=== PATIENT | male | born 1945 | race Caucasian/White ===

== ENCOUNTER → 2016-03-13 | Day surgery (SDC) | payer OTHER, BC ==
[2016-03-05 07:56] VITALS: Ht 180.3 cm; Wt 90.0 kg
[~2016-03-13] VITALS: Ht 180.3 cm; Wt 90.0 kg
[~2016-03-13] MED LIST: ACET-24 PO; ACET1TAB84 PO; ASPEC325 PO; ASPI-589 PO; ATOR-22 PO; ATROPINE SULFATE 0.1 MG/ML 5ML SYR IV PRN; CALC500C70 PO; CETI10TA84 PO; EpHEDrine SULFATE INJ 50 MG/ML AMP IV PRN; GLUCTAB7 PO; LEVO-371 PO; LIDOCAINE HCL 2% 2 ML VIAL (20MG/ML) ONE; MIDAZOLAM HCL 1 MG/ML 2ML VIAL ONE; MISCCAP80 PO; MORP-157 PO; NIAC500T11 PO; OMEG10007 PO; ONDA4TAB65 PO; ONDANSETRON INJ 2 MG/ML 2 ML VIAL ONE; PRLSR20 PO; PROPOFOL IV EMULSION 10 MG/ML 20 ML VIAL IV ONE; PSYL48.59 PO; RANI300T2 PO; SODIUM CHLORIDE 0.9% 500ML 500 ML IV ONE; ULT50X PO; VNTHFA/IN INH
[2016-03-13 11:20] VITALS: TEMP 36.7
--- NOTE | 2016-03-13 11:46 | Endo History and Physical ---
History & Physical Date of Service: Mar 13, 2016. Chief Complaint: Screening Referring Physician: Valdo History of Present Illness 70 yo CM who presents for screening colonoscopy. Past Medical History Arthritis, Asthma, Reflux Past Surgical History Hx Cardiac Surgery: No Hx Internal Defibrillator: No Hx Pacemaker: No Hx Abdominal Surgery: Yes (LAP KYLER, ERCP AND STENT PLACED IN PANCREAS) Hx of Implantable Prosthesis: No Hx Post-Op Nausea and Vomiting: No Hx Cancer Surgery: No Hx Thoracic Surgery: No Hx Orthopedic: No Hx Urinary Tract Surgery: No Family History None Social History Smoking Status: Former Smoker Hx Substance Use: No Hx Alcohol Use: No Allergies Coded Allergies: No Known Allergies (Unverified , 03/05/16) Current Medications Reported Home Medications Medications Dose Route/Sig Max Daily Dose Days Date Category Ventolin Hfa (Albuterol) 200 Puffs/10470 Mcg Aers 2-4 Puffs INH Q6H PRN 03/05/16 Reported Niacin 500 Mg Tab 500 Mg PO QAM 03/05/16 Reported [place]-3 (Fish Oil) 1 Ea Cap 1 Cap PO QAM 03/05/16 Reported Glucosamine Chondroitin (Asyuqhvzmzg-Gowloxfyjde-Oam C-) 1 Tab Tab 1 Tab PO BID 03/05/16 Reported Os-Marky 500 Plus D (Calcium/Vitamin D) Tab 1 Tab PO QAM 03/05/16 Reported Zyrtec (Cetirizine HCl) 10 Mg Tab 10 Mg PO HS 03/05/16 Reported Zantac (Ranitidine HCl) 300 Mg Tab 300 Mg PO HS 03/05/16 Reported Prilosec (Omeprazole) 20 Mg Capcr 20 Mg PO QAM 03/05/16 Reported Lipitor (Atorvastatin Calcium) 20 Mg Tab 20 Mg PO QPM 03/05/16 Reported Metamucil (Psyllium) 48.57 % Pow 1 Dose PO QAM 03/05/16 Reported Probiotic (Probiotic Product) 1 Cap Cap 1 Cap PO QAM 03/05/16 Reported Aspirin Adult Low Dose (Aspirin) 81 Mg Tab 81 Mg PO HS 06/17/14 Reported Vital Signs Weight (Kilograms): 90 Height (Feet): 5 Height (Inches): 11 Date Time Temp Pulse Resp B/P Pulse Ox O2 Delivery O2 Flow Rate FiO2 03/13/16 11:20 36.7 78 18 129/62 98 Room Air Physical Exam General Appearance: WD/WN, no apparent distress Respiratory/Chest: Auscultation: breath sounds normal Cardiovascular: Heart Auscultation: RRR Abdomen: Bowel Sounds: normal Inspection & Palpation: soft, non-distended, no tenderness, guarding & rebound Assessment and Plan Assessment: 70 yo CM who presents for screening colonoscopy. Plan: Proceed with colonoscopy.
--- NOTE | 2016-03-13 12:15 | Discharge Instructions ---
Endoscopy Patient Instructions Date / Procedure(s) Performed Mar 13, 2016. Colonoscopy Allergy Information Coded Allergies: No Known Allergies (Unverified , 03/05/16) Discharge Date / Findings Mar 13, 2016. Colon polyps Diverticulosis Internal hemorrhoids Provider Instructions Activity Restrictions - No exercising or heavy lifting for 24 hours. - Do not drink alcohol the day of the procedure. - Do not drive a car or operate machinery until the day after the procedure. - Do not make any important decisions or sign important papers in 24 hours after the procedure. Following Day: - Return to full activity which may include returning to work/school. Diet Start your diet with liquids and light foods (jello, soup, juice, toast). Then eat your usual diet if not nauseated. Treatment For Common After Affects For mild abdominal pain, bloating, or excessive gas: - Rest - Eat lightly - Lie on right side Follow-Up Information Follow-up with Valdo as scheduled Anesthesia Information What You Should Know You have had a procedure that required some medicine to reduce anxiety and discomfort. This treatment is called moderate sedation. After receiving the treatment, you may be sleepy, but you will be able to breathe on your own. The effects of the treatment may last for several hours. Follow these instructions along with Activity/Diet recommendations noted above: * Do NOT do anything where dizziness or clumsiness would be dangerous. * Rest quietly at home today, then you can be up and about tomorrow. * Have a responsible person stay with you the rest of today. * You may have had an I.V. today. If so, you may take the dressing off later today. Recommendations Call your doctor if: * Trouble breathing * Continuous vomiting for more than 24 hours * Temperature above 101 degrees * Severe abdominal pain or bloating * Pain not relieved by pain medicine ordered * There is increased drainage or redness from any incision * A large amount of rectal bleeding greater than 2-3 tablespoons. (If you had a polyp/s removed or have hemorrhoids, a small amount of blood - from the rectum is to be expected.) * You have any unanswered questions or concerns. IN THE EVENT OF A SERIOUS EMERGENCY, GO TO THE NEAREST EMERGENCY ROOM Your discharge instructions were prepared by provider Kevan Younger. Patient Instructions Signature Page Bob Elizondo Patient (or Guardian) Signature/Date: I have read and understand the instructions given to me by my caregivers. Caregiver/RN/Doctor Signature/Date: The above-named patient and/or guardian has received patient instructions on this date. + Original Patient Signature Page (only) stays with chart. Please make copy for patient.
[2016-03-13 12:32] VITALS: PULSE 81
--- NOTE | 2016-03-13 12:37 | Anesthesiology Progress Note ---
Anesthesia Post Op Note Date & Time Mar 13, 2016 at 12:37 Vital Signs Pain Intensity: 0 Vital Signs Past 12 Hours Date Time Temp Pulse Resp B/P Pulse Ox O2 Delivery O2 Flow Rate FiO2 03/13/16 12:32 81 18 94/53 95 Room Air 03/13/16 12:15 82 18 102/48 93 Room Air 03/13/16 11:20 36.7 78 18 129/62 98 Room Air Notes Mental Status: alert / awake / arousable, participated in evaluation Pt Amnestic to Procedure: Yes Nausea / Vomiting: adequately controlled Pain: adequately controlled Airway Patency, RR, SpO2: stable & adequate BP & HR: stable & adequate Hydration State: stable & adequate Anesthetic Complications: no major complications apparent
[2016-03-13 12:42] VITALS: BP 102/57; O2SAT 98
--- NOTE | 2016-03-13 12:43 | GI REPORT ---
Procedure Date: 03/13/2016 11:16 AM Procedure: Colonoscopy Indications: High risk colon cancer surveillance: Personal history of colonic polyps Medicines: Monitored Anesthesia Care Complications: No immediate complications. Estimated Blood Loss: Estimated blood loss: none. Procedure: Pre-Anesthesia Assessment: - Prior to the procedure, a History and Physical was performed, and patient medications and allergies were reviewed. The patient's tolerance of previous anesthesia was also reviewed. The risks and benefits of the procedure and the sedation options and risks were discussed with the patient. All questions were answered, and informed consent was obtained. Prior Anticoagulants: The patient has taken aspirin, last dose was 1 day prior to procedure. ASA Grade Assessment: II - A patient with mild systemic disease. After reviewing the risks and benefits, the patient was deemed in satisfactory condition to undergo the procedure. After I obtained informed consent, the scope was passed under direct vision. Throughout the procedure, the patient's blood pressure, pulse, and oxygen saturations were monitored continuously. The Scope was introduced through the anus and advanced to the terminal ileum. The colonoscopy was performed without difficulty. The patient tolerated the procedure well. The quality of the bowel preparation was good. The terminal ileum, ileocecal valve, appendiceal orifice, and rectum were photographed. Findings: Three sessile polyps were found in the transverse colon and in the ascending colon. The polyps were 5 to 7 mm in size. These polyps were removed with a hot snare. Resection and retrieval were complete. Multiple small-mouthed diverticula were found in the sigmoid colon. Non-bleeding internal hemorrhoids were found during retroflexion. The hemorrhoids were small. Impression: - Three 5 to 7 mm polyps in the transverse colon and in the ascending colon, removed with a hot snare. Resected and retrieved. - Diverticulosis in the sigmoid colon. - Non-bleeding internal hemorrhoids. Recommendation: - Resume previous diet. - Continue present medications. - Repeat colonoscopy for surveillance based on pathology results. - Return to primary care physician as previously scheduled. Kevan Younger DO 03/13/2016 12:42:10 PM This report has been signed electronically. Note Initiated On: 03/13/2016 11:16 AM
== END | disposition home or self-care (01) ==
LOC: C.GI 10:16
PROVIDERS: ATTEND Internal Medicine
DX: Z12.11 Encounter for screening for malignant neoplasm of colon (principal); Z86.010 Personal history of colon polyps; D12.2 Benign neoplasm of ascending colon; D12.3 Benign neoplasm of transverse colon; K57.30 Diverticulosis of large intestine without perforation or abscess without bleeding; K64.8 Other hemorrhoids; J45.909 Unspecified asthma, uncomplicated; E78.5 Hyperlipidemia, unspecified

== ENCOUNTER → 2016-03-19 | Outpatient (CLI) | payer OTHER, BC ==
[~2016-03-19] MED LIST changes: -ATROPINE SULFATE 0.1 MG/ML 5ML SYR IV PRN; -EpHEDrine SULFATE INJ 50 MG/ML AMP IV PRN; -LIDOCAINE HCL 2% 2 ML VIAL (20MG/ML) ONE; -MIDAZOLAM HCL 1 MG/ML 2ML VIAL ONE; -ONDANSETRON INJ 2 MG/ML 2 ML VIAL ONE; -PROPOFOL IV EMULSION 10 MG/ML 20 ML VIAL IV ONE; -SODIUM CHLORIDE 0.9% 500ML 500 ML IV ONE
[2016-03-19 18:25] LABS: URINE APPEARANCE CLEAR (CLEAR); URINE BILIRUBIN NEG (NEG); URINE COLOR YELLOW; URINE NITRITE NEG (NEG); URINE PH 5.5 (4.5-7.5); URINE SPECIFIC GRAVITY 1.003 (1.000-1.030); UROBILINOGEN NEG (NEG)
[2016-03-19 18:26] LABS: MANUAL MICROSCOPIC REQUIRED? NO; REVIEW REQ? NO
== END | disposition home or self-care (01) ==
LOC: C.LABSPEC 10:48
PROVIDERS: ATTEND Family Medicine
DX: R39.9 Unspecified symptoms and signs involving the genitourinary system (principal)

== ENCOUNTER → 2016-07-26 | Outpatient (CLI) | payer OTHER, BC ==
[~2016-07-26] MED LIST changes: -LEVO-371 PO; +LEVO5TAB2 PO
[2016-07-26 13:31] LABS: HEMATOCRIT 42.8 % (42-52); MEAN CORPUSCULAR HEMOGLOBIN 28.7 pg (25-34); MEAN CORPUSCULAR HGB CONC 32.9 g/dl (32-36); MEAN PLATELET VOLUME 9.6 fL (7.4-10.4); PLATELET COUNT 222 K/uL (130-400); RED BLOOD COUNT 4.92 M/uL (4.7-6.1)
[2016-07-26 14:25] LABS: ALT/SGPT 29 U/L (12-78); BLOOD UREA NITROGEN 15 mg/dl (7-18); BUN/CREATININE RATIO 12.8 (10-20); CARBON DIOXIDE 29 mmol/L (21-32); CHLORIDE 106 mmol/L (98-107); CHOLESTEROL 177 mg/dl (0-200); GLUCOSE 83 mg/dl (70-99); SODIUM 142 mmol/L (136-145); TRIGLYCERIDES 186 mg/dl (0-150); VERY LOW DENSITY LIPOPROT CALC 37 mg/dl
[2016-07-26 14:29] LABS: ALKALINE PHOSPHATASE 47 U/L (45-117); AST/SGOT 15 U/L (15-37); CHOLESTEROL/HDL RATIO 3.6; HDL CHOLESTEROL 49 mg/dl; LDL CHOLESTEROL CALCULATED 91 mg/dl; PROSTATE SPECIFIC ANTIGEN 0.872 ng/ml (0.000-4.000)
[2016-07-26 14:32] LABS: CALCIUM 8.6 mg/dl (8.5-10.1)
== END | disposition home or self-care (01) ==
LOC: C.LABMFLN 08:23
PROVIDERS: ATTEND Family Medicine
DX: J45.909 Unspecified asthma, uncomplicated (principal); K21.9 Gastro-esophageal reflux disease without esophagitis; E78.5 Hyperlipidemia, unspecified; Z11.59 Encounter for screening for other viral diseases; Z12.5 Encounter for screening for malignant neoplasm of prostate

== ENCOUNTER 2016-10-23 08:17 | Inpatient (IN) | payer OTHER, BC ==
[2016-10-19 08:25] VITALS: BMI 29.0
--- NOTE | 2016-10-19 08:55 | PAT Medication Instructions ---
Service Date Oct 19, 2016. Current Home Medication List Acetaminophen (Tylenol Arthritis Ext Rel), 1,300 MG PO PRN Albuterol Hfa (Ventolin Hfa), 2-4 PUFFS INH Q6H PRN for Shortness of Breath Aspirin (Aspirin Adult Low Dose), 81 MG PO HS Atorvastatin (Lipitor), 20 MG PO QPM Calcium/Vitamin D (Os-Marky 500 Plus D), 1 TAB PO QAM Fish Oil ([place]-3), 1 CAP PO QAM Zbxkstgxnty-Ailgunuxtpr-Ivk C- (Glucosamine Chondroitin), 1 TAB PO BID Levocetirizine Dihydrochloride (Xyzal), 1 TAB PO QPM Niacin (Niacin), 500 MG PO QAM Omeprazole (Prilosec), 20 MG PO QAM Psyllium (Metamucil), 1 DOSE PO BID Ranitidine (Zantac), 150 MG PO HS Medication Instructions For Your Scheduled Surgery - Hold the following medications as of 10/19/16: Fish Oil ([place]-3), 1 CAP PO QAM Dmwtmgglgqw-Ltmhrbojpnf-Vtj C- (Glucosamine Chondroitin), 1 TAB PO BID - Hold the following medications the morning of surgery: Niacin (Niacin), 500 MG PO QAM Calcium/Vitamin D (Os-Marky 500 Plus D), 1 TAB PO QAM Psyllium (Metamucil), 1 DOSE PO BID - Take the following medications the morning of surgery with a sip of water OTHERWISE NOTHING TO EAT OR DRINK AFTER MIDNIGHT: Albuterol Hfa (Ventolin Hfa), 2-4 PUFFS INH Q6H PRN for Shortness of Breath ( USE IF NEEDED; BRING TO HOSPITAL) Acetaminophen (Tylenol Arthritis Ext Rel), 1,300 MG PO PRN (if needed; up to 4 hours prior to surgery) Omeprazole (Prilosec), 20 MG PO QAM - Take the following medications as scheduled the night before surgery: Albuterol Hfa (Ventolin Hfa), 2-4 PUFFS INH Q6H PRN for Shortness of Breath Acetaminophen (Tylenol Arthritis Ext Rel), 1,300 MG PO PRN Aspirin (Aspirin Adult Low Dose), 81 MG PO HS Atorvastatin (Lipitor), 20 MG PO QPM Levocetirizine Dihydrochloride (Xyzal), 1 TAB PO QPM Ranitidine (Zantac), 150 MG PO HS Psyllium (Metamucil), 1 DOSE PO BID If you have any questions please call us at [phone] or [phone] or [phone]
--- NOTE | 2016-10-19 09:46 | DIAGNOSTIC IMAGING REPORT ---
CHEST PREADMISSION(PA/LAT) CLINICAL HISTORY: 70 years-old Male presenting with preadmission chest x-ray. TECHNIQUE: PA and lateral views of the chest were obtained. COMPARISON: 03/28/2015. FINDINGS: Atherosclerosis of aortic arch. Cardiac silhouette normal. Lungs and pleural spaces clear. Osseous structures normal. Cholecystectomy clips noted. IMPRESSION: 1. No acute cardiopulmonary disease. Electronically signed by: Jerod Carlton M.D. 10/19/2016 9:45 AM Dictated Date/Time: 10/19/2016 9:44 AM
[2016-10-19 10:06] LABS: BASO % 0.3 %; BASO ABS # 0.02 K/uL (0-0.2); COMPLETE YES; HEMATOCRIT 41.1 % (42-52); LYMPH % 39.2 %; MEAN CELL VOLUME 86.2 fL (80-100); MEAN CORPUSCULAR HEMOGLOBIN 28.7 pg (25-34); MEAN CORPUSCULAR HGB CONC 33.3 g/dl (32-36); MEAN PLATELET VOLUME 9.3 fL (7.4-10.4); MONO % 9.9 %; NEUT % 44.6 %; PLATELET COUNT 249 K/uL (130-400); RED BLOOD COUNT 4.77 M/uL (4.7-6.1); WHITE BLOOD COUNT 5.86 K/uL (4.8-10.8)
[2016-10-19 10:14] LABS: PROTHROMBIN TIME (PATIENT) 10.5 SECONDS (9.0-12.0)
[2016-10-19 10:24] LABS: BUN/CREATININE RATIO 13.8 (10-20); CALCIUM 8.3 mg/dl (8.5-10.1); CREATININE 1.1 mg/dl (0.60-1.40); POTASSIUM 4.4 mmol/L (3.5-5.1)
--- NOTE | 2016-10-19 19:03 | HISTORY & PHYSICAL EXAMINATION ---
DATE OF ADMISSION: 10/23/2016 CHIEF COMPLAINT: Right knee pain. HISTORY OF PRESENT ILLNESS: A 70-year-old gentleman who presents for surgical treatment of his right knee. He has got a long history of right knee pain and discomfort. He describes it has gotten worse over time. He has been through extensive conservative care. This has become less successful over time. The shots help him for about a week and that is about it. The pain medicines and the antiinflammatories barely take the edge off. Pain has become more disabling. He has got pain all the time. It is increased with weightbearing. It is mostly lateral sided pain. He would like to have his knee replaced. PAST MEDICAL HISTORY: Significant for: 1. Elevated cholesterol. 2. Gastroesophageal reflux disease. 3. Hiatal hernia. PAST SURGICAL HISTORY: Previous surgeries include: 1. Throat surgery. 2. Cholecystectomy. ALLERGIES: None. CURRENT MEDICINES: Include: 1. Atorvastatin 20 mg. 2. Omeprazole 20 mg. 3. Ranitidine 300 mg at bedtime. 4. Metamucil 2 tablespoons twice a day. 5. Aspirin 81 mg a day. 6. Xyzal p.r.n. for allergies. 7. Calcium. 8. Glucosamine. 9. Fish oil. 10. [place] 3. 11. Niacin. 12. Probiotic. SOCIAL HISTORY: He is a 70-year-old male. He is from [place]. He is . FAMILY HISTORY: Negative for cardiac disease or diabetes. No known clotting disorders. REVIEW OF SYSTEMS: Negative for diabetes, neurologic problems, vascular problems, bleeding disorders. Denies any chest pain or shortness of breath. No history of DVT or PE. PHYSICAL EXAMINATION: GENERAL: Physical examination reveals a healthy, pleasant, middle-aged male. He looks to be in good health. HEENT: Benign. NECK: Supple. No lymphadenopathy. LUNGS: Clear to auscultation. HEART: Has a regular rate and rhythm. ABDOMEN: Soft, nontender, nondistended. EXTREMITIES: Grossly neurovascularly intact except as follows: Examination of the right knee reveals the patient to ambulate independently. The patient has slight valgus alignment to his knee which is made worse with weightbearing. He has got a small knee effusion. He is tender both over the medial and lateral joint line. Range of motion is 5-120. No instability. X-RAYS: X-rays of the right knee reviewed. It shows advanced lateral compartment DJD with complete loss of his lateral joint space on 40-degree flexion films. He has got osteophytes off the lateral femoral condyle and lateral tibial plateau. ASSESSMENT: A 70-year-old male with right knee advanced lateral compartment degenerative joint disease unresponsive to conservative treatment. He would like to have his knee replaced. PLAN: We will take him to the operating room and do a right total knee replacement. The risks and benefits of this procedure were explained to the patient including but not limited to DVT, PE, , infection, neurological injury, vascular injury, bleeding problem, pain, limited range of motion, stiffness, failure to relieve the symptoms, incomplete relief of symptoms, need for further surgery in the future, fracture, leg length inequality, nerve palsy, persistent pain, etc. The patient understands and desires to proceed. Informed consent was obtained. The patient will stop his supplements 10 days preop. He is planning to be discharged to home using a home health program of some sort.
[~2016-10-23] VITALS: Ht 180.3 cm; Wt 94.8 kg
[2016-10-23] VITALS (8 sets, daily range): BP systolic 102–127; BP diastolic 61–75; PULSE 49–80; TEMP 36.4–36.9; O2SAT 95–99; Ht 180.3 cm; Wt 94.8 kg
[~2016-10-23 08:17] MED LIST changes: -ACET-24 PO; +ACETAMINOPHEN 500 MG TAB PO SCH; -ASPEC325 PO; +BUPIVACAINE 0.25% 30 ML VIAL ONE; +BUPIVACAINE 0.5 % 5 MG/1 ML PF 10ML VIAL ONE; +BUPIVACAINE LIPOSOME 266 MG, BUPIVACAINE/EPINEPHRINE INJ 50 ML, SODIUM CHLORIDE 0.9% PF... INFIL SCH; +CEFAZOLIN 2000 MG/60 ML D5W 60 ML IV SCH; -CETI10TA84 PO; +FAMOTIDINE 20 MG TAB PO SCH; +GABAPENTIN 300 MG CAP PO SCH; +LACTATED RINGER'S 1000ML 1,000 ML IV SCH; +LACTATED RINGER'S 1000ML 500 ML IV ONE; +LACTATED RINGER'S 1000ML IV SCH; +LEVO-371 PO; -LEVO5TAB2 PO; +METOCLOPRAMIDE HCL 10 MG TAB PO SCH; -MISCCAP80 PO; -MORP-157 PO; -ONDA4TAB65 PO; +SCOPOLAMINE 1.5 MG TDSY TD SCH; +TRANEXAMIC ACID INJ 1,000 MG in SODIUM CHLORIDE 0.9% 100ML 100 ML IV SCH; -ULT50X PO
--- NOTE | 2016-10-23 08:50 | History & Physical Bridge Note ---
H&P Re-Evaluation Bridge Note: I have examined the patient, reviewed the History & Physical and in the interval since the performance of the History & Physical I have noted the following changes of clinical significance: No changes noted
[2016-10-23] MEDS: CHECK SCOPOLAMINE PATCH PLACEMENT SCH (09:01)
[2016-10-23] MEDS ORDERED: MIDAZOLAM HCL 1 MG/ML 2ML VIAL ONE ×3 (09:53→10:59)
[2016-10-23] MEDS ORDERED: ATROPINE SULFATE 0.1 MG/ML 5ML SYR IV PRN (11:00)
[2016-10-23] MEDS ORDERED: HYDROmorphone INJ 2 MG/ML SYR/VIAL IV PRN (11:00)
[2016-10-23] MEDS ORDERED: ONDANSETRON INJ 2 MG/ML 2 ML VIAL IV PRN (11:00)
[2016-10-23] MEDS ORDERED: PHENYLEPHRINE 100MCG/ML 5ML SYR IV PRN (11:00)
[2016-10-23] MEDS ORDERED: EpHEDrine SULFATE INJ 50 MG/ML AMP IV PRN (11:00)
[2016-10-23] MEDS ORDERED: BACITRACIN 50000 UNIT VIAL ONE (11:04)
[2016-10-23] MEDS ORDERED: BUPIVACAINE/EPINEPHRINE 0.25% 1:200,000 30 ML VIAL ONE (11:04)
[2016-10-23] MEDS ORDERED: BUPIVACAINE LIPOSOME 1/3% 266 MG/20 ML VIAL INFIL ONE (11:04)
[2016-10-23] MEDS ORDERED: SODIUM CHLORIDE 0.9% PF 50 ML VIAL ONE (11:04)
[2016-10-23] MEDS ORDERED: ROPIVACAINE 0.5% 5 MG/ML 30 ML VIAL ONE (11:33)
[2016-10-23] MEDS ORDERED: LIDOCAINE HCL 2% 2 ML VIAL (20MG/ML) ONE (12:25)
[2016-10-23] MEDS ORDERED: PROPOFOL IV EMULSION 10 MG/ML 20 ML VIAL IV ONE (12:25)
--- NOTE | 2016-10-23 13:02 | [facility] Post Operative Brief Note ---
Immediate Operative Summary Operative Date Oct 23, 2016. Pre-Operative Diagnosis Degenerative joint disease, right knee Post-Operative Diagnosis same as preoperative diagnosis Procedure(s) Performed Right total knee arthroplasty Surgeon Dr. Jb Church Sap Bi Developer Surgeon(s) Joseph Servin PA-C Estimated Blood Loss 50 ml Findings Right Knee DJD Fluids (cc crystalloids) 2000 cc Specimens A. Right knee bone and tissue Drains None Anesthesia Spinal Complication(s) None Disposition Recovery Room / PACU
[2016-10-23] MEDS ORDERED: ZOLPIDEM TARTRATE 5 MG TAB PO PRN (13:15)
[2016-10-23] MEDS ORDERED: TAMSULOSIN HCL 0.4 MG CAP PO PRN (13:15)
[2016-10-23] MEDS ORDERED: HYDROmorphone INJ 0.5 MG/0.5 ML SYR IV PRN (13:15)
[2016-10-23] MEDS ORDERED: METOCLOPRAMIDE HCL INJ 5 MG/ML 2 ML VIAL IV PRN (13:15)
[2016-10-23] MEDS ORDERED: MAGNESIUM HYDROXIDE SUSP 30 ML UDC PO PRN (13:15)
[2016-10-23] MEDS ORDERED: BISACODYL 10 MG SUPP PR PRN (13:15)
[2016-10-23] MEDS ORDERED: SILVER SULFADIAZINE 1% CR 50 GM JAR EXT PRN (13:15)
[2016-10-23] MEDS ORDERED: ALUMINUM/MAGNESIUM/SIMETH (MAALOX MAX) 30 ML UDC PO PRN (13:15)
[2016-10-23] MEDS ORDERED: ALBUTEROL HFA 8 GM INHALER INH PRN (13:15)
--- NOTE | 2016-10-23 13:40 | DIAGNOSTIC IMAGING REPORT ---
TWO VIEWS RIGHT KNEE CLINICAL HISTORY: Postoperative examination. FINDINGS: AP and crosstable lateral portable views of the right knee are obtained. A right knee arthroplasty is in near anatomic alignment. There has been undersurface remodeling of the patella. No acute fracture is seen. There are expected postoperative changes around the knee including skin clips, soft tissue edema, and subcutaneous gas. IMPRESSION: Expected postoperative changes status post right knee arthroplasty. No acute fracture is seen. Electronically signed by: Juan Jasmine M.D. 10/23/2016 1:39 PM Dictated Date/Time: 10/23/2016 1:38 PM
--- NOTE | 2016-10-23 14:02 | OPERATIVE REPORT ---
DATE OF OPERATION: 10/23/2016 SURGEON: Jb Church MD FISHING ROD MARKER: GEORGIE Hays PREOPERATIVE DIAGNOSIS: Right knee degenerative joint disease. POSTOPERATIVE DIAGNOSIS: Same. PROCEDURE PERFORMED: Right cemented posterior stabilized total knee arthroplasty. COMPLICATIONS: None. ESTIMATED BLOOD LOSS: 50 mL. FLUID REPLACEMENT: 2000 mL crystalloid fluid replacement. ANESTHESIA: Spinal with adductor canal block. DRAINS: None. SPECIMENS: Right knee sent for pathology. TOURNIQUET TIME: 57 minutes at 300 mmHg. OPERATIVE INDICATIONS: The patient is a 70-year-old gentleman who has had a fairly long history of right knee pain and discomfort. He has been through extensive conservative treatment and gets pretty minimal relief with injection for about a week. Pain has become more disabling over time. It has been really affecting his lifestyle and ability to enjoy recreational activities. He elected to proceed with right total knee arthroplasty. OPERATIVE FINDINGS: Operative findings revealed advanced right knee lateral compartment DJD. He had grade 4 eooj-kh-hhpd disease of the lateral femoral condyle and lateral tibial plateau. The medial compartment was fairly well spared. The trochlea was fairly normal, but he did have grade 4 changes diffusely in the patella was well. OPERATIVE IMPLANTS: Operative implants consisted of: 1. A Biomet Vanguard size 72.5 right posterior stabilized femoral component. 2. Biomet size 79 tibial tray. 3. A 12-mm posterior stabilized polyethylene insert. 4. A 34 x 8.5 all poly patella. OPERATIVE PROCEDURE: The patient was taken to the operating room, identified and placed on the operating table in the supine position. All contact areas were appropriately padded. IV antibiotics provided by anesthesia team. Spinal anesthetic with adductor canal block had been provided in the holding area. Dobbins catheter was placed in sterile fashion. Right thigh tourniquet was then placed and the right lower extremity was then prepped and draped in the usual sterile fashion. The right leg was elevated and exsanguinated with Esmarch and tourniquet was placed at 300 mmHg. An anterior approach to the right knee was then performed through a longitudinal incision centered over the patella. Sharp dissection was carried out through the subcutaneous tissues down to the level of the extensor mechanism. A medial parapatellar arthrotomy incision was made. Some subperiosteal dissection was carried out medially. The fat pad was resected from beneath the patellar tendon. Lateral patellofemoral ligament was released. The patella was everted and knee was flexed. The osteophytes were taken off the distal femur. The ACL and PCL were then released from the distal femur and the tibia subluxated anteriorly. The external tibial alignment jig was placed in the anterior face of the tibia and adjusted 12 mm medially. Proximal tibial cut was made to remove about 3-4 mm of bone from the medial side. I took a pretty even piece both medially and laterally. Tibia was sized to a size 79. Attention was then drawn to the femur. The distal femur was entered with a sharp drill. Intramedullary canal was suctioned. A right 5-degree valgus cutting guide was placed. Distal femoral cutting block was pinned in place. Distal femoral cut was made to take an additional 3 mm of bone off the distal femur. The femur was then sized to a size 72.5. We did downsize this slightly. The AP cutting block was pinned parallel to the epicondylar axis, which was 4 degrees of external rotation. The anterior cut, anterior chamfer, posterior cut, and posterior chamfer cuts were made. Box cutting guide was placed and adjusted slightly lateral and the box cut was made. The knee was flexed. The remnants of the medial and lateral meniscus were excised. The osteophytes were taken off the posterior aspect of the femur. Trial femoral component was placed. Tibial tray was pinned in maximum external rotation and the drill and stem punch were used to create defect in proximal tibia for the tibial tray. The knee was then trialed and the 12-mm insert fit most appropriately. Attention was then drawn to the patella. The patella was cleaned of all soft tissues. Patellar thickness measured 23 mm in thickness and it was cut down to 14. It was sized to a size 34 patella. Lug holes were drilled for a 34 patella. Lateral osteophyte was removed. Patella button was placed. Knee was taken through range of motion and the patella tracked nicely with no thumbs test. Attention was then drawn toward placement of permanent components. Of note, in order to equalize the flexion gap, I did have to release the popliteus tendon. I did not release of the IT band and extension as the extension gap was balanced. Attention was drawn toward placement of permanent components. All trial components were removed. A bone plug was placed in the distal femur to limit blood loss. A double batch of [place] G cement was mixed. A right size 72.5 posterior stabilized femoral component, size 79 tibial tray, a 12-mm posterior stabilized polyethylene insert, and a 34 x 8.5 all poly patella were then cemented into place. The knee was brought out into full extension until cement hardened. A final cement check was then performed. The pericapsular tissues were injected with 100 mL of a combination of 20 mL of Exparel, 30 mL of normal saline, and 50 mL of 0.25% Marcaine with epinephrine. The patient did receive 1 gram of tranexamic acid. The tourniquet was then let down for a tourniquet time of 57 minutes. Hemostasis was assured with the use of electrocautery. The wound was once again irrigated. The extensor mechanism was then closed with a combination of #1 PDS suture and #1 Vicryl suture in a [id number] fashion. Extensor mechanism was checked and found to be intact. The subcutaneous tissues were then closed with 2-0 Dexon suture in a buried interrupted fashion. Skin was closed skin karen. Leg was then cleaned and dried and a sterile dressing of Xeroform, 4 x 4, sterile cast padding and Larry bandage were applied. The patient then transferred to the recovery room in stable condition. The patient tolerated the procedure well with no complications. All needle and sponge counts were correct at the end of the operation. I attest to the content of the Intraoperative Record and any orders documented therein. Any exception s are noted below.
--- NOTE | 2016-10-23 14:11 | Anesthesiology Progress Note ---
Anesthesia Post Op Note Date & Time Oct 23, 2016 at 14:11 Vital Signs Pain Intensity: 0.0 Vital Signs Past 12 Hours Date Time Temp Pulse Resp B/P (MAP) Pulse Ox O2 Delivery O2 Flow Rate FiO2 10/23/16 13:50 98 Room Air 10/23/16 13:50 36.5 66 16 110/68 (82) 98 Room Air 10/23/16 13:50 Room Air 10/23/16 13:40 66 20 121/65 96 Room Air 10/23/16 13:30 37.0 63 20 126/66 96 Room Air 10/23/16 13:20 73 20 119/56 95 Room Air 10/23/16 13:10 65 20 121/69 95 Room Air 10/23/16 13:04 36.3 79 20 118/67 96 Room Air 10/23/16 08:38 36.9 80 20 127/75 95 Room Air Notes Mental Status: alert / awake / arousable, participated in evaluation Pt Amnestic to Procedure: Yes Nausea / Vomiting: adequately controlled Pain: adequately controlled Airway Patency, RR, SpO2: stable & adequate BP & HR: stable & adequate Hydration State: stable & adequate Anesthetic Complications: no major complications apparent
[2016-10-23] MEDS: D5W AND 1/2NSS + 20MEQ KCL 1,000 ML IV SCH (14:31)
[2016-10-23] MEDS: KETOROLAC TROMETHAMINE 15 MG/ML VIAL IV. SCH ×2 (15:55→22:29)
[2016-10-23] MEDS ORDERED: FERROUS GLUCONATE 324 MG TAB PO SCH (17:45)
[2016-10-23] MEDS ORDERED: TRANEXAMIC ACID INJ 1,000 MG in SODIUM CHLORIDE 0.9% 100ML 100 ML IV SCH (19:00)
[2016-10-23] MEDS: TRAMADOL HCL 50 MG TAB PO PRN (19:03)
[2016-10-23] MEDS: CEFAZOLIN IV 2,000 MG in DEXTROSE 5% 50ML 50 ML IV SCH (20:22)
[2016-10-23] MEDS: ATORVASTATIN 20 MG TAB PO SCH (20:23)
[2016-10-23] MEDS: DOCUSATE SODIUM 100 MG CAP PO SCH (20:23)
[2016-10-23] MEDS: PSYLLIUM 58.6% PWD PACK S\\F PO SCH (20:23)
[2016-10-23] MEDS: ASPIRIN 325 MG ECTAB PO SCH (20:24)
[2016-10-23] MEDS: RANITIDINE HCL 150 MG TAB PO SCH (20:24)
[2016-10-23] MEDS: SENNA 8.6 MG TAB PO SCH (20:25)
[2016-10-23] MEDS: ONDANSETRON INJ 2 MG/ML 2 ML VIAL IV PRN (22:26)
[2016-10-23] MEDS: ACETAMINOPHEN 500 MG TAB PO SCH (22:28)
[2016-10-24] MEDS: D5W AND 1/2NSS + 20MEQ KCL 1,000 ML IV SCH ×2 (00:20→11:10)
[2016-10-24] MEDS: CHECK SCOPOLAMINE PATCH PLACEMENT SCH ×4 (00:21→23:41)
[2016-10-24] MEDS: TRAMADOL HCL 50 MG TAB PO PRN ×3 (00:26→13:56)
[2016-10-24 02:45] VITALS: BP 97/59; PULSE 62; TEMP 36.6; O2SAT 97
[2016-10-24] MEDS: CEFAZOLIN IV 2,000 MG in DEXTROSE 5% 50ML 50 ML IV SCH (04:07)
[2016-10-24] MEDS: KETOROLAC TROMETHAMINE 15 MG/ML VIAL IV. SCH ×4 (04:07→21:36)
[2016-10-24] MEDS: ACETAMINOPHEN 500 MG TAB PO SCH ×3 (06:14→21:33)
[2016-10-24 07:29] LABS: HEMATOCRIT 37.9 % (42-52); MEAN CELL VOLUME 85.6 fL (80-100); MEAN CORPUSCULAR HEMOGLOBIN 28.2 pg (25-34); MEAN PLATELET VOLUME 9.4 fL (7.4-10.4); PLATELET COUNT 245 K/uL (130-400); RED BLOOD COUNT 4.43 M/uL (4.7-6.1); WHITE BLOOD COUNT 10.87 K/uL (4.8-10.8)
[2016-10-24 07:57] LABS: BUN/CREATININE RATIO 10.8 (10-20); CALCIUM 8.5 mg/dl (8.5-10.1); CREATININE 1.1 mg/dl (0.60-1.40)
[2016-10-24 08:15] VITALS: BP 112/66; PULSE 51; TEMP 36.6; O2SAT 97
--- NOTE | 2016-10-24 08:20 | Anesthesiology Progress Note ---
Anesthesia Post Op Note Date & Time Oct 24, 2016 at 08:18 Vital Signs Pain Intensity: 7.0 Vital Signs Past 12 Hours Date Time Temp Pulse Resp B/P (MAP) Pulse Ox O2 Delivery O2 Flow Rate FiO2 10/24/16 08:15 36.6 51 18 112/66 (81) 97 Room Air 10/24/16 02:45 36.6 62 18 97/59 (72) 97 Room Air 10/24/16 02:04 Room Air 10/23/16 23:28 36.8 62 18 102/62 (75) 97 Room Air Notes Mental Status: alert / awake / arousable, participated in evaluation Pt Amnestic to Procedure: Yes Nausea / Vomiting: adequately controlled Pain: adequately controlled Airway Patency, RR, SpO2: stable & adequate BP & HR: stable & adequate Hydration State: stable & adequate Neuraxial Anesthesia: was administered, sensory block resolved Anesthetic Complications: no major complications apparent
[2016-10-24] MEDS ORDERED: NON-FORMULARY MEDICATION (Omeprazole (Prilosec) 20 MG) PO SCH (09:00)
[2016-10-24] MEDS: MULTIVITAMIN TAB PO SCH (09:15)
[2016-10-24] MEDS: DOCUSATE SODIUM 100 MG CAP PO SCH ×2 (09:15→20:50)
[2016-10-24] MEDS: ASPIRIN 325 MG ECTAB PO SCH ×2 (09:15→20:50)
[2016-10-24] MEDS: CALCIUM 600MG + VIT D 400 IU TAB PO SCH (09:15)
[2016-10-24] MEDS: PANTOprazole SOD 40 MG TAB PO SCH (09:16)
[2016-10-24] MEDS: NIACIN 500 MG TAB IMMEDIATE RELEASE PO SCH (09:16)
[2016-10-24] MEDS ORDERED: ASPEC325 PO (10:30)
[2016-10-24] MEDS ORDERED: MORP-157 PO (10:30)
[2016-10-24] MEDS ORDERED: ULT50X PO (10:30)
[2016-10-24] MEDS ORDERED: ACET-24 PO (10:30)
--- NOTE | 2016-10-24 10:32 | Discharge Instructions ---
Discharge Instructions Date of Service Oct 24, 2016. Admission Reason for Admission: Right Knee Degenerative Joint Disease Discharge Discharge Diagnosis / Problem: Right Knee Replacement Discharge Goals Goal(s): Decrease discomfort, Improve function, Increase independence, Improve disease control, Therapeutic intervention Activity Recommendations Activity Limitations: per Instructions/Follow-up section Weightbearing Status: Right weightbearing . Instructions / Follow-Up Instructions / Follow-Up ACTIVITY RECOMMENDATIONS: Physical Therapy: * You will go to physical therapy three times each week for four to six weeks after your surgery in order to regain your knee range of motion and to retrain your knee to work properly. * It is just as important to make sure you are getting your knee perfectly straight as it is to regain your knee bend. * Taking a pain pill an hour before therapy can help you have a more productive and comfortable therapy session. Home Exercise: * You were shown a series of exercises (heel props, heel slides, etc.) in the hospital. Do these exercises three to four times each day including the exercises you were shown in physical therapy. Walking: * Get up and walk several times each day. For the first four weeks, try not to stand or walk for more than one hour at a time. If you do stand or walk for more than one hour, you will not hurt anything, but your knee and leg will likely swell. * As you feel comfortable, you may change from the walker or crutches to a cane and then to independent walking. MEDICATIONS: New Medicine: * You will likely be taking one or more of these medications: 1. MS Contin - A long-acting pain medication. Take 1 tablet twice a day for the first ten days to decrease your baseline level of pain. 2. Tramadol - A quick and shorter-acting pain medication. Take one to two tablets every four to six hours to lessen your pain. 3. Aspirin - Thins your blood to lessen the chance of forming a blood clot. * The most common side effects of pain medicine and iron are nausea and constipation. If nausea or constipation is too much of a problem or if you have any questions about your new medicines or doses, call [facility] at . We will try to help you manage these issues. VERY IMPORTANT TO READ AND REVIEW" Pain: * The immediate post-operative period after knee replacement surgery is often quite painful. * You are given a prescription for pain medicine. You should take it, as directed, when you need it, especially before physical therapy and before going to bed. Pain that interferes with sleep is very common and can last several months. * You will likely need pain medicine for the first four to six weeks. It will not stop all of the pain. The pain will lessen and as you feel better, you may change to milder pain medicine such as Tylenol. * The most common side effects of pain medicine are nausea and constipation, so don't take more than you need. SPECIAL CARE INSTRUCTIONS: TEDs/Elastic Stockings: * The white elastic stockings help limit swelling and prevent blood clots from forming in your legs. The more you wear them, the more they work. * Wear them for six weeks after knee replacement surgery and four weeks after partial knee replacement. Prevention of Infection: * Take antibiotics one hour before any dental cleaning, dental work, urological procedure, gastrointestinal procedure or any invasive surgery in order to prevent your new joint from getting infected. * You may get the antibiotics from the doctor performing the procedure or you may call our office at before and we will call in a prescription to the pharmacy of your choice. Things to Watch For: * Drainage from the incision site that occurs more than one week after your surgery. * Severely increased knee/leg pain or swelling. * Increased redness at the incision site. * Fever above 102 degrees Fahrenheit. * Unusual chest pain or shortness of breath. * Unusual pain or burning with urination. Call [facility] at with any of the above problems or if you have any questions about your medicines or recovery. FOLLOW UP VISIT: Make an appointment to see your doctor for approximately two weeks after surgery for a progress check and staple removal by calling the office at . Current Hospital Diet Patient's current hospital diet: Regular Diet Discharge Diet Recommended Diet: Regular Diet Procedures Procedures Performed: Right total knee arthroplasty Pending Studies Studies pending at discharge: no Laboratory Results Lipid Panel Test 07/26/16 08:29 Range/Units Triglycerides Level 186 H 0-150 mg/dl Cholesterol Level 177 0-200 mg/dl HDL Cholesterol 49 mg/dl Cholesterol/HDL Ratio 3.6 LDL Cholesterol, Calculated 91 mg/dl Medical Emergencies . Who to Call and When: Medical Emergencies: If at any time you feel your situation is an emergency, please call 911 immediately. . Non-Emergent Contact Non-Emergency issues call your: Surgeon . "Provider Documentation" section prepared by Jb Church. . VTE Core Measure Inpt VTE Proph given/why not?: Other Anticoagulation, T.E.D. Stockings, SCD's
[2016-10-24] MEDS: PSYLLIUM 58.6% PWD PACK S\\F PO SCH ×2 (10:50→20:50)
--- NOTE | 2016-10-24 11:04 | PROGRESS NOTE ---
DATE: 10/24/2016 SUBJECTIVE: A 71-year-old gentleman postop day 1 from a right total knee replacement. He is doing pretty well. A moderate amount of pain. Denies any chest pain or shortness of breath. Not feeling dizzy or lightheaded. OBJECTIVE: VITAL SIGNS: Temperature 36.6. Vital signs stable. GENERAL: Physical examination reveals a healthy, pleasant elderly male. He is sitting up in bed and talking to his and looks pretty comfortable. LUNGS: Clear to auscultation. HEART: Regular rate and rhythm. ABDOMEN: Soft, nontender, and nondistended. EXTREMITIES: Grossly neurovascularly intact except as follows: Examination of the right leg reveals the leg to be well aligned. Dressing is clean, dry, and intact. He can dorsiflex and plantarflex his foot appropriately. He is neurologically intact. LABORATORY DATA: Hemoglobin 12.5 and hematocrit 37.9. Electrolytes are stable. ASSESSMENT: A 71-year-old gentleman postop day 1 from right knee replacement, doing pretty well. His pain is reasonably well controlled. He is neurologically intact. PLAN: 1. DVT prophylaxis including thigh-high TEDs, SCDs, and aspirin twice a day. 2. PT/OT. He can weightbear as tolerated. Right total knee protocol. 3. Pain control, doing pretty well with current pain regimen. 4. Disposition: He is planning to be discharged home and he can do outpatient therapy once medically stable.
[2016-10-24 12:05] VITALS: BP 135/77; PULSE 63; TEMP 36.5; O2SAT 99
[2016-10-24 15:09] VITALS: BP 150/78; PULSE 71; TEMP 36.6; O2SAT 99
[2016-10-24] MEDS: ONDANSETRON INJ 2 MG/ML 2 ML VIAL IV PRN (15:29)
[2016-10-24] MEDS: SENNA 8.6 MG TAB PO SCH (21:33)
[2016-10-24] MEDS: ATORVASTATIN 20 MG TAB PO SCH (21:33)
[2016-10-24] MEDS: RANITIDINE HCL 150 MG TAB PO SCH (21:33)
[2016-10-24 23:13] VITALS: BP 147/76; PULSE 67; TEMP 36.7; O2SAT 98
[2016-10-25] MEDS: KETOROLAC TROMETHAMINE 15 MG/ML VIAL IV. SCH ×2 (04:03→10:16)
[2016-10-25] MEDS: ONDANSETRON INJ 2 MG/ML 2 ML VIAL IV PRN ×3 (04:04→17:30)
[2016-10-25] MEDS: ACETAMINOPHEN 500 MG TAB PO SCH ×2 (05:50→13:39)
[2016-10-25] MEDS ORDERED: ONDA4TAB65 PO (06:48)
[2016-10-25 06:51] VITALS: BP 132/76; PULSE 95; TEMP 36.5; O2SAT 97
--- NOTE | 2016-10-25 07:32 | PROGRESS NOTE ---
DATE: 10/25/2016 SUBJECTIVE: 71-year-old gentleman postop day 2 from right knee replacement. He is doing well. Pain is tolerable. Little bit nauseated with the pain medicine. No chest pain or shortness of breath. Not feeling dizzy or lightheaded. OBJECTIVE: VITAL SIGNS: Temperature is 36.7. Vital signs stable. PHYSICAL EXAMINATION: GENERAL: Elderly pleasant elderly male. He is awake, alert and oriented. EXTREMITIES: Examination of the right leg reveals the dressing to be clean, dry and intact. No significant drainage. Leg is well aligned. He can dorsiflex and plantarflex his foot appropriately. Calf is soft and supple. ASSESSMENT: 71-year-old gentleman postop day 2 from a right knee replacement, doing reasonably well. Pain is controlled, but having some nausea with the pain medicine; Zofran, seems to help. PLAN: 1. DVT prophylaxis including thigh-high TEDs, SCDs, and aspirin twice a day. 2. PT/OT. Weightbearing as tolerated. Right total knee protocol. 3. Pain control, doing pretty well with current pain regimen. He is having some nausea but responds well to Zofran. 4. Disposition: Plan to discharge to home and he is going to do outpatient therapy.
[2016-10-25] MEDS: CALCIUM 600MG + VIT D 400 IU TAB PO SCH (08:21)
[2016-10-25] MEDS: MULTIVITAMIN TAB PO SCH (08:21)
[2016-10-25] MEDS: NIACIN 500 MG TAB IMMEDIATE RELEASE PO SCH (08:21)
[2016-10-25] MEDS: PANTOprazole SOD 40 MG TAB PO SCH (08:22)
[2016-10-25] MEDS: DOCUSATE SODIUM 100 MG CAP PO SCH (08:52)
[2016-10-25] MEDS: ASPIRIN 325 MG ECTAB PO SCH (08:52)
[2016-10-25] MEDS: PSYLLIUM 58.6% PWD PACK S\\F PO SCH (08:52)
[2016-10-25 15:12] VITALS: BP 158/72; PULSE 67; TEMP 36.5; O2SAT 100
[2016-10-25 17:19] VITALS: BP 158/72; PULSE 67; TEMP 36.5; O2SAT 100
[2016-10-25] MEDS: TRAMADOL HCL 50 MG TAB PO PRN (17:30)
--- NOTE | 2016-10-30 15:58 | DISCHARGE SUMMARY ---
ADMITTING PHYSICIAN AND SURGEON: Dr. Church. ADMITTING DIAGNOSIS: Right knee degenerative joint disease. SURGERY PERFORMED: Right total knee arthroplasty. SECONDARY DIAGNOSES: Elevated cholesterol, gastroesophageal reflux disease, hiatal hernia. CONSULTS: None obtained. HISTORY AND PHYSICAL EXAMINATION: Well documented in patient's chart. HOSPITAL COURSE: The patient was admitted on 10/23/2016 underwent total knee arthroplasty, tolerated the procedure well. There were no complications. He was transferred to the PACU postoperatively and later to the orthopedic floor for further care. He was given Ancef for antibiotic prophylaxis, MAGALIS stockings, SCDs and aspirin for DVT prophylaxis. Hemoglobin, hematocrit and vital signs were monitored during his hospital stay and remained stable. He did not require any blood transfusions. There were no complications. By postoperative day 2, he was tolerating a general diet, pain was controlled with oral pain medicine. He was participating in physical therapy and had no signs or symptoms of deep vein thrombosis. On postop day 2, he was discharged home. He was given printed discharge instructions including new prescriptions for extra strength Tylenol, aspirin 325 mg b.i.d., MS Contin, tramadol, Zofran, continue his home medications with the exception of his home dose of aspirin and Tylenol, which were changed. Continue physical therapy, weightbearing as tolerated, MAGALIS stockings. Follow up in 10-12 days or sooner if there are any problems or concerns.
== END 2016-10-25 17:48 | disposition home or self-care (01) | DRG 470 ==
LOC: C.ACU 08:17 → C.3E 13:07 → ENRESERV 13:29
PROVIDERS: ADMIT Orthopaedic Surgery Sports Medicine; ATTEND Orthopaedic Surgery Sports Medicine
PROC: 0SRC0J9 Replacement of Right Knee Joint with Synthetic Substitute, Cemented, Open Approach (ICD-10-PCS; principal; 2016-10-23 11:00)
DX: M17.11 Unilateral primary osteoarthritis, right knee (principal); K21.9 Gastro-esophageal reflux disease without esophagitis; K44.9 Diaphragmatic hernia without obstruction or gangrene; J45.909 Unspecified asthma, uncomplicated; E78.00 Pure hypercholesterolemia, unspecified; E78.5 Hyperlipidemia, unspecified; R06.83 Snoring; R11.0 Nausea; H91.90 Unspecified hearing loss, unspecified ear; Z79.82 Long term (current) use of aspirin; Z79.899 Other long term (current) drug therapy

== ENCOUNTER → 2017-01-30 | Outpatient (CLI) | payer OTHER, BC ==
[~2017-01-30] MED LIST changes: +ACET-24 PO; -ACET1TAB84 PO; -ACETAMINOPHEN 500 MG TAB PO SCH; +ASPEC325 PO; -ASPI-589 PO; -BUPIVACAINE 0.25% 30 ML VIAL ONE; -BUPIVACAINE 0.5 % 5 MG/1 ML PF 10ML VIAL ONE; -BUPIVACAINE LIPOSOME 266 MG, BUPIVACAINE/EPINEPHRINE INJ 50 ML, SODIUM CHLORIDE 0.9% PF... INFIL SCH; -CEFAZOLIN 2000 MG/60 ML D5W 60 ML IV SCH; -FAMOTIDINE 20 MG TAB PO SCH; -GABAPENTIN 300 MG CAP PO SCH; -LACTATED RINGER'S 1000ML 1,000 ML IV SCH; -LACTATED RINGER'S 1000ML 500 ML IV ONE; -LACTATED RINGER'S 1000ML IV SCH; -LEVO-371 PO; +LEVO5TAB2 PO; -METOCLOPRAMIDE HCL 10 MG TAB PO SCH; +ONDA4TAB65 PO; -SCOPOLAMINE 1.5 MG TDSY TD SCH; -TRANEXAMIC ACID INJ 1,000 MG in SODIUM CHLORIDE 0.9% 100ML 100 ML IV SCH; +ULT50X PO
[2017-01-30 11:59] LABS: BASO % 1.4 %; BASO ABS # 0.11 K/uL (0-0.2); COMPLETE YES; EOS % 10.2 %; HEMATOCRIT 41.8 % (42-52); IG% 0.1 %; LYMPH % 32.2 %; LYMPH ABS # 2.59 K/uL (1.2-3.4); MEAN CELL VOLUME 82.8 fL (80-100); MEAN CORPUSCULAR HEMOGLOBIN 26.5 pg (25-34); MEAN CORPUSCULAR HGB CONC 32.1 g/dl (32-36); MEAN PLATELET VOLUME 9.3 fL (7.4-10.4); MONO % 8.8 %; NEUT % 47.3 %; PLATELET COUNT 283 K/uL (130-400); RED BLOOD COUNT 5.05 M/uL (4.7-6.1); WHITE BLOOD COUNT 8.04 K/uL (4.8-10.8)
[2017-01-30 12:22] LABS: ALT/SGPT 25 U/L (12-78); BLOOD UREA NITROGEN 11 mg/dl (7-18); BUN/CREATININE RATIO 11.4 (10-20); CALCIUM 8.6 mg/dl (8.5-10.1); CARBON DIOXIDE 30 mmol/L (21-32); CHLORIDE 105 mmol/L (98-107); CHOLESTEROL 154 mg/dl (0-200); GLUCOSE 93 mg/dl (70-99); SODIUM 140 mmol/L (136-145); TRIGLYCERIDES 137 mg/dl (0-150); VERY LOW DENSITY LIPOPROT CALC 27 mg/dl
[2017-01-30 12:25] LABS: ALKALINE PHOSPHATASE 56 U/L (45-117); AST/SGOT 13 U/L (15-37); CHOLESTEROL/HDL RATIO 3.3; HDL CHOLESTEROL 46 mg/dl; LDL CHOLESTEROL CALCULATED 81 mg/dl
== END | disposition home or self-care (01) ==
LOC: C.LABMFLN 08:13
PROVIDERS: ATTEND Nurse Practitioner Family
DX: J45.909 Unspecified asthma, uncomplicated (principal); K21.9 Gastro-esophageal reflux disease without esophagitis; E78.5 Hyperlipidemia, unspecified